=== PATIENT | female | born 1970 | race Caucasian/White ===

== ENCOUNTER → 2016-08-06 | Outpatient (CLI) | payer BC ==
[~2016-08-06] MED LIST: CITA40TA12 PO; GABA-113 PO
--- NOTE | 2016-08-06 10:56 | DIAGNOSTIC IMAGING REPORT ---
CERVICAL SPINE 2 OR 3 VIEWS CLINICAL HISTORY: Neck and right shoulder pain. COMPARISON STUDY: No previous studies for comparison. FINDINGS: There is straightening of normal cervical lordosis. No acute fractures or traumatic subluxations are visualized. There are degenerative changes the C5-6 level with disc space narrowing osteophyte formation. Minimal retrolisthesis of C5 on C6 is felt to be degenerative IMPRESSION: Straightening of normal cervical lordosis. Degenerative changes at the C5-6 level. Electronically signed by: Jaiden Ku M.D. 08/06/2016 10:55 AM Dictated Date/Time: 08/06/2016 10:54 AM
--- NOTE | 2016-08-06 10:59 | DIAGNOSTIC IMAGING REPORT ---
RIGHT SHOULDER MIN 2 VIEWS ROUTINE CLINICAL HISTORY: Right shoulder pain. COMPARISON: None. DISCUSSION: No fractures or dislocations are visualized. There are no erosive or destructive changes. There are mild degenerative changes present within the AC joint. IMPRESSION: Mild degenerative changes within the right AC joint. No fractures, subluxations, or destructive lesions are visualized. Electronically signed by: Jaiden Ku M.D. 08/06/2016 10:57 AM Dictated Date/Time: 08/06/2016 10:57 AM
--- NOTE | 2016-08-06 11:11 | DIAGNOSTIC IMAGING REPORT ---
LEFT TIBIA AND FIBULA 2 VIEWS CLINICAL HISTORY: Left leg pain. FINDINGS: AP and lateral views of the left tibia and fibula are correlated with radiograph of left knee dated 11/30/2011. The skeletal structures appear osteopenic. No tibial or fibular fracture is identified. Mild arthritic change is present at the knee. The ankle joint appears maintained. The overlying soft tissues are within normal limits. IMPRESSION: No acute bony abnormality is seen involving the left tibia or fibula.. Electronically signed by: Gilbert Isaacs M.D. 08/06/2016 11:09 AM Dictated Date/Time: 08/06/2016 11:08 AM
== END | disposition home or self-care (01) ==
LOC: C.RADBC 09:46
PROVIDERS: ATTEND Family Medicine
DX: M25.511 Pain in right shoulder (principal); M54.12 Radiculopathy, cervical region; M79.605 Pain in left leg

== ENCOUNTER → 2016-08-11 | Outpatient (CLI) | payer BC ==
[2016-08-11 14:02] LABS: BASO % 0.6 %; BASO ABS # 0.05 K/uL (0-0.2); COMPLETE YES; EOS % 3.6 %; HEMATOCRIT 40.3 % (37-47); IG% 0.3 %; LYMPH % 40.3 %; LYMPH ABS # 3.14 K/uL (1.2-3.4); MEAN CELL VOLUME 93.5 fL (80-100); MEAN CORPUSCULAR HEMOGLOBIN 31.8 pg (25-34); MEAN PLATELET VOLUME 10.6 fL (7.4-10.4); MONO % 7.2 %; PLATELET COUNT 335 K/uL (130-400); RED BLOOD COUNT 4.31 M/uL (4.2-5.4)
[2016-08-11 14:15] LABS: ALT/SGPT 31 U/L (12-78); BLOOD UREA NITROGEN 11 mg/dl (7-18); BUN/CREATININE RATIO 17.6 (10-20); C-REACTIVE PROTEIN < 0.29 mg/dl (0-0.29); CALCIUM 9.1 mg/dl (8.5-10.1); CARBON DIOXIDE 26 mmol/L (21-32); CHLORIDE 104 mmol/L (98-107); CREATININE 0.63 mg/dl (0.60-1.20); GLUCOSE 82 mg/dl (70-99); POTASSIUM 4.4 mmol/L (3.5-5.1); SODIUM 141 mmol/L (136-145)
[2016-08-11 14:27] LABS: ALKALINE PHOSPHATASE 80 U/L (45-117); AST/SGOT 17 U/L (15-37); IMMUNOGLOBULN M 38.5 mg/dL (40-230); RHEUMATOID FACTOR < 10.0 U/mL (0-15)
[2016-08-14 00:29] LABS: CYCLIC CITRULLINATED PEPT IGG <16 UNITS (<20); ENDOMYSIAL IGA AB TC 15064 Negative (Negative); IGA SERUM 394 mg/dL (81-463); IMMUNOGLOBULIN D TC 541X 92 mg/L (<179); TIS TRANS IGA 1 U/mL (<4)
--- NOTE | 2016-08-24 13:47 | CODING QUERY MEDICAL NECESSITY ---
SUPPORTING DIAGNOSIS NEEDED A supporting diagnosis is required for the test/procedure performed on this patient in order for us to be reimbursed by the patient's insurance. Please provide a supporting diagnosis for the following test/procedure listed below next to the test name along with your signature. *If there is no additional diagnosis for this patient that would support the following test/procedure please document that below next to the test/procedure. Test(s)/Procedure(s) that require a supporting diagnosis: * VITAMIN D 25-HYDROXY DIAGNOSIS: * DOS: 08/11/16 Provider Signature: Date: Thank you Ladi Roland Health Information Management Once completed, please kindly fax back to [phone] For questions please call [phone]
== END | disposition home or self-care (01) ==
LOC: C.LABSPEC 13:37
PROVIDERS: ATTEND Family Medicine
DX: M25.50 Pain in unspecified joint (principal); R53.83 Other fatigue

== ENCOUNTER → 2016-09-13 | Outpatient (CLI) | payer BC | END | disposition home or self-care (01) | LOC: C.MAMM 15:34 | PROVIDERS: ATTEND Family Medicine | DX: M85.9 Disorder of bone density and structure, unspecified (principal) ==

== ENCOUNTER → 2017-07-28 | Outpatient (CLI) | payer OTHER ==
[2017-07-28 11:46] LABS: ALBUMIN 3.3 gm/dl (3.4-5.0); ALKALINE PHOSPHATASE 81 U/L (45-117); ALT/SGPT 36 U/L (12-78); AST/SGOT 19 U/L (15-37); BLOOD UREA NITROGEN 13 mg/dl (7-18); CALCIUM 8.7 mg/dl (8.5-10.1); CARBON DIOXIDE 25 mmol/L (21-32); CHOLESTEROL 183 mg/dl (0-200); CREATININE 0.59 mg/dl (0.60-1.20); GLUCOSE 110 mg/dl (70-99); LDL CHOLESTEROL CALCULATED 116 mg/dl; POTASSIUM 3.9 mmol/L (3.5-5.1); SODIUM 136 mmol/L (136-145); TOTAL PROTEIN 7.6 gm/dl (6.4-8.2)
[2017-07-29 12:28] LABS: ANA SCREEN TC 249X NEGATIVE (NEGATIVE)
== END | disposition home or self-care (01) ==
LOC: C.LABBC 08:04
PROVIDERS: ATTEND Family Medicine
DX: M25.50 Pain in unspecified joint (principal); Z13.1 Encounter for screening for diabetes mellitus; Z13.220 Encounter for screening for lipoid disorders

== ENCOUNTER → 2017-09-19 | Outpatient (CLI) | payer OTHER ==
--- NOTE | 2017-09-19 17:07 | DIAGNOSTIC IMAGING REPORT ---
L ANKLE MIN 3 VIEWS ROUTINE, L FOOT MIN 3 VIEWS ROUTINE CLINICAL HISTORY: PAIN IN L ANKLE AND JOINTS OF L FOOT COMPARISON STUDY: None. FINDINGS: No fracture or dislocation. Mild soft tissue swelling within the lateral ankle. 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 Small plantar and posterior calcaneal spurs. The Lisfranc joint is intact. IMPRESSION: No fracture or dislocation within the left ankle or left foot. Electronically signed by: Rhys Nuñez M.D. 09/19/2017 5:06 PM Dictated Date/Time: 09/19/2017 5:00 PM
== END | disposition home or self-care (01) ==
LOC: C.RADBC 16:06
PROVIDERS: ATTEND Family Medicine
DX: M25.572 Pain in left ankle and joints of left foot (principal)